=== PATIENT | male | born 1965 | race Caucasian/White ===

== ENCOUNTER 2025-04-19 06:55 | Day surgery (SDC) | payer OTHER ==
[2025-03-21 15:20] VITALS: BP 119/85
[~2025-04-19] VITALS: Ht 167.6 cm; Wt 63.6 kg
--- NOTE | ~2025-04-19 | OR ---
[facility] [address], [place] [address] Draft DATE OF OPERATION: 04/19/2025 SURGEON: Magdi Urena MD PREOPERATIVE DIAGNOSES: Bilateral sinonasal polyposis, septal deformity. POSTOPERATIVE DIAGNOSES: Bilateral sinonasal polyposis, septal deformity. PROCEDURES: Bilateral intranasal ethmoidectomy, bilateral intranasal polypectomy, septoplasty. ANESTHESIA: General orotracheal, DIRECT SALES PROFESSIONAL, Jose. PREOP HISTORY: Mr. Angel is a 60-year-old man with a long history of sinus problems. He has had exam in the office and a CT scan showing sinus opacification, mainly ethmoids and maxillary left side worse than right with obvious polypoid growth in the middle meatus and nasal cavity. This is causing chronic sinus infection, nasal obstruction unresponsive to appropriate medications and he is taken to the operating for the above-mentioned procedures. OPERATIVE PROCEDURE AND FINDINGS: After informed consent, the patient was taken to the operating room, placed in the supine position where general orotracheal anesthesia was induced. The patient and procedure were verified. Preop CT was viewed throughout. The patient received preoperative intravenous Ancef and intranasal oxymetazoline. Headlight speculum exam of the nasal cavity showed polypoid material in both middle meatus, left greater than right. The septal spur on the left side was obstructive inferiorly and also back posteriorly impinging on the middle meatus and starting on the left side. All screws me all polypoid material in the nasal cavity was removed with Ludy followed up into the middle meatus and the anterior ethmoid air cells were opened, polypoid material removed. Posterior ethmoids opened. Polypoid material also removed from that area. The nasofrontal duct had polypoid material and this was removed and pulled down with angled Ludy. The left maxillary sinus was opened. Middle meatal antrostomy with a curved ring curette. There was purulence in the sinus, but no polypoid material just some mildly hypertrophic mucosa. The antrostomy was widened with the Ludy. Bleeding was prominent but stopped after the procedure. Packing was placed. A Elizabeth pack coated PATIENT NAME: MAINE ANGEL JR OPERATIVE REPORT DATE OF : 67 REPORT #: [id number] PHYSICIAN: MAGDI URENA MD PCP: MARTÍNEZ JACOBO PAC REPORT IS CONFIDENTIAL AND NOT TO BE RELEASED WITHOUT AUTHORIZATION [facility] [address], [place] [address] Draft with Neosporin in the middle meatus and a trimmed Merocel pack coated with Neosporin in the nasal cavity. Same procedure on the right side, much less polypoid material. Packing was placed as per the left. The left septal deformity was excised with Ludy prior to packing and the airway was markedly improved, less impingement of the nasal cavity and middle meatus. After packing was placed, the strings were tied anteriorly over a pad. The pharynx was suctioned clear of blood secretions. Hemostasis was verified. The patient was then awakened, extubated, transported to the recovery room in good condition. No complications. BLOOD LOSS: Around 100 mL. PACKING: Two pieces of Merocel each side. SPECIMEN: To pathology left and right sinus contents separately. No complications. No drains. Magdi Urena MD GC/MODL /[id number] Copies: ~ PATIENT NAME: KELLIEMAINE OPERATIVE REPORT DATE OF : 67 REPORT #: [id number] PHYSICIAN: MAGDI URENA MD PCP: MARTÍNEZ JACOBO PAC REPORT IS CONFIDENTIAL AND NOT TO BE RELEASED WITHOUT AUTHORIZATION
[~2025-04-19 06:55] MED LIST: LACTATED RINGER'S 1,000 ML IV SCH; VENTOLIN HFA18 GM
[2025-04-19] MEDS ORDERED: IBLOOD GLUCOSE TEST STRIP 1 EA TEST VI PRN (07:00)
[2025-04-19] MEDS ORDERED: LIDOCAINE HCL 1% 5 ML SDV INJ ONE (07:00)
[2025-04-19] MEDS ORDERED: CEFAZOLIN SODIUM 1 GM/10 ML SYR IV SCH (07:00)
[2025-04-19] MEDS ORDERED: OXYMETAZOLINE HCL 30 ML BTL NAS SCH (07:00)
[2025-04-19 07:22] VITALS: BP 104/75
--- NOTE | 2025-04-19 07:30 | NUR ---
PT NOT AVAILABLE FOR VISIT. PROVIDED PRAYER.
[2025-04-19] MEDS ORDERED: DEXAMETHASONE SOD PHOS 4 MG/ML VIAL ONE (08:28)
[2025-04-19] MEDS ORDERED: LIDOCAINE HCL 2% 5 ML SDV ONE (08:30)
[2025-04-19] MEDS ORDERED: ROCURONIUM BROMIDE 50 MG/5 ML SYR ONE (08:30)
[2025-04-19] MEDS ORDERED: fentaNYL citrate 100 MCG/2 ML VIAL ONE (08:32)
[2025-04-19] MEDS ORDERED: SUGAMMADEX SODIUM 200 MG/2 ML ML ONE (09:46)
--- NOTE | 2025-04-19 10:00 | NUR ---
04/19/25 Elina Everett 0950-PATIENT ARRIVED TO PACU ON 6L MASK REACTIVE EYES OPEN RR EVEN. SR HR 70'S. PAD TO NOSTRILS SATURATED NEW PAD PLACED BY RN AND SRT DONNY. PATIENT REPORTED WATERY EYES. DENIES PAIN OR NAUSEA. 0955-PATIENT AWAKE PLACED ON RA RR EVEN REPORTS "HEADACHE" SR HR 70'S/
[2025-04-19] MEDS ORDERED: fentaNYL citrate 50 MCG/ML SDV IV PRN (10:15)
[2025-04-19] MEDS ORDERED: NALOXONE HCL 0.4 MG SYR IV PRN (10:15)
[2025-04-19] MEDS ORDERED: ACETAMINOPHEN 1,000 MG/100 ML VIAL IV ONE (10:15)
[2025-04-19] MEDS ORDERED: HYDROCODONE/ACETA 5/325 TAB PO PRN (10:15)
--- NOTE | 2025-04-19 10:30 | NUR ---
PT ARRIVES TO DS FROM PACU VIA STRETCHER. PT REPORTS PAIN IS TOLERABLE AT THIS TIME AND DENIES NEED FOR PRN PAIN MED. PT IS A&O, DROWSY, BUT ASKING APPROPRIATE QUESTIONS AT THIS TIME. REPORT RECEIVED FROM TU BEAR AND DRESSING VISUALIZED, ANGIE AT BEDSIDE. PT PROVIDED ICE WATER, JELLO, AND CRACKERS. PT TOLERATING SIPS OF ICE WATER WITHOUT DIFFICULTY AND NO REPORTED NAUSEA. CALL LIGHT WITHIN REACH, PT STATES NO FURTHER QUESTIONS OR NEEDS AT THIS TIME. PROVIDED HAND WRITTEN PRESCRIPTION TO TAKE TO PHARMACY OF CHOOSING.
[2025-04-19 10:35] VITALS: BP 132/79
--- NOTE | 2025-04-19 11:12 | NUR ---
IN PT ROOM FOR PAIN ASSESSMENT. PT STATES PAIN HAS IMPROVED TO 2/10 AND NO NEED FOR PRN PAIN MED AT THIS TIME. PT REPORTS NO FURTHER NEEDS OR QUESTIONS AT THIS TIME. CALL LIGHT WITHIN REACH. PT ANGIE TO PHARMACY TO DROP OFF PRESCRIPTION.
[2025-04-19 11:40] VITALS: BP 120/82
--- NOTE | 2025-04-19 11:43 | NUR ---
IN PT ROOM FOR VS AND ASSESSMENT. PT STATES HE IS READY TO GO HOME. PT ANGIE IN ROOM TO ASSIST W/GETTING DRESSED. CALL LIGHT WITHIN REACH.
--- NOTE | 2025-04-19 11:50 | NUR ---
IN PT ROOM FOR DC EDUCATION. PT AND ANGIE STATE VERBAL UNDERSTANDING TO DC EDUCATION AT THIS TIME AND NO FURTHER QUESTIONS. DEMONSTRATIONS OF DRIP PAD CHANGE PERFORMED, ANGIE AND PT STATE VERBAL UNDERSTANDING. PT OFF OF UNIT VIA WC TO PASSENGER SIDE OF VEHICLE. FRESH ICE PACK AND MATERIALS FOR DRIP PAD PROVIDED WELL. ALL BELONGINGS IN PT POSSESSION AT THIS TIME. PT STATES NO FURTHER NEEDS OR QUESTIONS.
--- NOTE | 2025-04-21 13:36 | PATH ---
[facility] [address] [place], [place] [address] Signed SPECIMEN(S): A LEFT SINUS CONTENTS/POLYPS SPECIMEN(S): B RIGHT SINUS CONTENTS/POLYPS SPECIMEN SOURCE: A. LEFT SINUS CONTENTS/POLYPS B. RIGHT SINUS CONTENTS/POLYPS CLINICAL HISTORY: Allergic rhinitis FINAL PATHOLOGIC DIAGNOSIS: A. Left sinus content polyps: - Polypoid respiratory-type mucosa with abundant stromal eosinophils. - Focal scattered chronic stromal inflammation. - Fragments of benign bone. B. Right sinus contents/polyps: - Polypoid respiratory-type mucosa with abundant stromal eosinophils. - Focal scattered chronic stromal inflammation. - Fragments of benign bone. JVR:james MICROSCOPIC EXAMINATION: Histologic sections of all submitted blocks are examined by light microscopy. These findings, together with the gross examination, support the pathologic diagnosis. GROSS DESCRIPTION: A. The specimen, labeled and designated "Stanley, left sinus contents/polyps," is received in formalin and consists of multiple fragments of stacy to red-brown soft and cartilaginous tissue (0.3-2.2 cm in greatest dimension, and 2.6 x 2.5 x 0.5 cm in aggregate). The tissue is sectioned, and the specimen is submitted entirely in cassette (A1) following decalcification in decal stat. B. The specimen, labeled and designated "Stanley, right sinus contents," is received in formalin and consists of multiple fragments of stacy to red-brown soft and cartilaginous tissue (0.3-3.0 cm in greatest dimension, and 2.5 x 2.5 x 0.5 cm in aggregate). The specimen is submitted entirely in cassette (B1) following decalcification in decal stat. VB (under the direct supervision of a pathologist) The Gross Description was prepared using a voice recognition system. The report was reviewed for accuracy; however, sound-alike word errors, addition and/or PATIENT NAME: MAINE HOPKINS JR PATHOLOGY DATE OF : 67 REPORT #: [id number] PHYSICIAN: DRAKE NEIL PCP: MARTÍNEZ JACOBO PAC REPORT IS CONFIDENTIAL AND NOT TO BE RELEASED WITHOUT AUTHORIZATION [facility] [address] [facility] [place], [place] [address] Signed deletions may occur. If there is any question about this report, please contact Client Services. PERFORMING LABORATORY: Technical component was performed by [facility], [address] [place] [address] (CLIA# [id number]). Professional interpretation was performed by [facility] - [facility], [address] [place] [id number] (CLIA#: [id number]). Diagnostician: Paco Arita MD Pathologist Electronically Signed 04/21/2025 Copies: ~ PATIENT NAME: MAINE HOPKINS JR PATHOLOGY DATE OF : 67 REPORT #: [id number] PHYSICIAN: DRAKE PATHOLOGY PCP: MARÍTNEZ JACOBO PAC REPORT IS CONFIDENTIAL AND NOT TO BE RELEASED WITHOUT AUTHORIZATION
== END 2025-04-19 11:55 | disposition home or self-care (01) ==
LOC: DS 06:55
PROVIDERS: ATTEND Otolaryngology
PROC: 09B Ear, Nose, Sinus, Excision (ICD-10-PCS; 2025-04-19)
PROC: 099Q7ZZ Drainage of Right Maxillary Sinus, Via Natural or Artificial Opening (ICD-10-PCS; 2025-04-19)
PROC: 099R7ZZ Drainage of Left Maxillary Sinus, Via Natural or Artificial Opening (ICD-10-PCS; 2025-04-19)
PROC: 09SM0ZZ Reposition Nasal Septum, Open Approach (ICD-10-PCS; 2025-04-19)
PROC: 09B Ear, Nose, Sinus, Excision (ICD-10-PCS; principal; 2025-04-19 08:40)
DX: J33.8 Other polyp of sinus (principal); J34.2 Deviated nasal septum; J30.9 Allergic rhinitis, unspecified; J32.9 Chronic sinusitis, unspecified; J34.89 Other specified disorders of nose and nasal sinuses; Z88.0 Allergy status to penicillin
CPT/HCPCS: 00160; J0131; J0690; J1100; J2003; J2405; J2704; J3010; J3490; J7121